=== PATIENT | female | born 1960 | race Caucasian/White ===

== ENCOUNTER 2024-04-17 14:48 | Emergency (ER) | payer MEDICARE, MEDICAID, SELFPAY ==
[2024-04-17] VITALS (84 sets, daily range): BP systolic 141–227; BP diastolic 69–110; PULSE 68–84; RESP 11–23; TEMP 36.3; O2SAT 93–100
--- NOTE | ~2024-04-17 | XR_ITS ---
EXAMINATION: XR chest 2V 04/17/2024 15:35 INDICATION: Hypertension. PROCEDURE: 2 view chest COMPARISON: No prior studies for comparison. FINDINGS: The lungs are clear. The cardiomediastinal silhouette is within normal limits. There are no pleural effusions. There is no pneumothorax suspected. IMPRESSION: 1: NO ACUTE CARDIOPULMONARY DISEASE. Reviewed, dictated and finalized at location B.
--- NOTE | 2024-04-17 14:56 | ECG_ITS ---
Test Date: 2024-04-17 14:52:30 Measurements Intervals [place] Rate: 74 P: 74 RI: 188 QRS: 24 QRSD: 75 T: 11 QT: 374 QTc: 415 Interpretive Statements SINUS RHYTHM BORDERLINE ST-T WAVE ABNORMALITY- ANTEROLAT/INF LEADS BORDERLINE ECG No previous ECG available for comparison Electronically Signed On 04-17-2024 15:03:23 CDT by William Hubbard D.O.
[2024-04-17 15:45] LABS: Basophils Absolute Auto 0.06 K/mm3 (0.00-0.10); Basophils Percent Auto 0.6 % (0.0-1.0); Eosinophils Absolute Auto 0.71 K/mm3 (0.02-0.50); Eosinophils Percent Auto 6.8 % (1.0-6.0); Hemoglobin 13.6 g/dL (11.7-13.8); Immature Granulocyte Absolute 0.04 K/mm3 (0.00-0.00); Immature Granulocyte Percent A 0.4 % (0.0-0.0); Lymphocytes Absolute Auto 2.54 K/mm3 (1.10-4.50); Lymphocytes Percent Auto 24.3 % (18.0-42.0); Mean Corpuscular HGB Conc 33.2 g/dL (32-36); Mean Corpuscular Hemoglobin 29.6 pg (27.0-31.0); Mean Corpuscular Volume 89.1 fL (78.0-102.0); Mean Platelet Volume 9.8 fl (9.2-11.8); Monocytes Absolute Auto 0.73 K/mm3 (0.10-0.90); Neutrophils Absolute Auto 6.37 K/mm3 (1.70-7.20); Neutrophils Percent Auto 60.9 % (50.0-70.0); Platelet Count Result 296 K/mm3 (150-420); Red Cell Distribution Width 13.2 % (11.6-14.4); White Blood Count 10.5 K/mm3 (4.8-10.8)
--- NOTE | 2024-04-17 15:47 | ED.ARRPALP ---
HPI - Arrhythmia/Palpitations General Chief Complaint: Arrhythmia/Palpitations Stated Complaint: irregular heart rhythm while in cardiac rehab Source: patient Mode of arrival: ambulatory Limitations: no limitations History of Present Illness HPI narrative: Patient is a 64-year-old female with coronary disease and a stent last month. She is at cardiac rehab and was having for counts of wide complex ectopic beats. She was asymptomatic. She is brought to the ER for this finding. No associated chest pain or shortness of breath or nausea vomiting or diarrhea. she was also noted to have elevated blood pressure. MD complaint: irregular heart beat Onset (ago): minute(s) (30) Duration: intermittent Severity: mild Context: occurred during exertion Arrhythmia history: other ( Stent placed last month) Associated symptoms: denies other symptoms Treatments prior to arrival: other ( elevated blood pressure which is under control for the most part but worse today) Related Data Home Medications Medication Instructions Recorded Confirmed aspirin 81 mg tablet 81 mg PO DAILY 04/17/24 04/17/24 atorvastatin 80 mg tablet 80 mg PO DAILY 04/17/24 04/17/24 losartan 25 mg tablet 25 mg PO DAILY 04/17/24 04/17/24 metoprolol succinate 25 mg 25 mg PO DAILY 04/17/24 04/17/24 tablet,extended release 24 hr ticagrelor 90 mg tablet (Brilinta) 90 mg PO BID 04/17/24 04/17/24 Allergies Allergy/AdvReac Type Severity Reaction Status Date / Time codeine AdvReac Unknown Verified 12/22/15 08:42 Penicillins AdvReac Unknown Verified 12/22/15 08:42 Review of Systems Review of Systems: All systems reviewed & are unremarkable except as noted in HPI and below Constitutional: Constitutional: Reports no additional constitutional complaints Eyes: Eyes: Reports no additional eye complaints ENT: Reports system reviewed and no additional complaints, except as documented Cardiovascular: Cardiovascular: Reports no additional cardiovascular complaints Respiratory: Respiratory: Reports no additional respiratory complaints Gastrointestinal: Gastrointestinal: Reports no additional gastrointestinal complaints Genitourinary: Genitourinary: Reports no additional female genitourinary complaints Musculoskeletal: Musculoskeletal: Reports no additional musculoskeletal complaints Integumentary/Breasts: Skin/Breast: Reports system reviewed and no additional complaints, except as docu Neurologic: Reports system reviewed and no additional complaints, except as documented Psychiatric: Psychiatric: Reports no additional psychiatric complaints Endocrine: Endocrine: Reports no additional endocrine complaints Hematologic/Lymphatic: Hematologic/Lymphatic: Reports no additional hematologic/lymphatic complaints Allergic/Immunologic: Allergic/Immunologic: Reports no additional allergic/immunologic complaints Exam Const: General: healthy appearing Nutritional Appearance: well nourished Orientation/consciousness: patient oriented x3 HENMT: Head: normal to inspection Ears: external ears normal Face/Nose/Sinus: Normal external nose present Eyes: Conjunctivae: conjunctivae normal Pupils: Equal, round and reactive pupils present EOM: EOMs intact bilaterally Neck: Neck: normal visual inspection Chest: Chest palpation & inspection: normal inspection of the chest Resp: Effort & Inspection: normal respiratory effort and not labored Auscultation: clear to auscultation bilaterally Cardio: Rate: regular rate Rhythm: regular rhythm Heart sounds: no murmurs GI: Inspection: non-distended GI Palp: Yes Soft to palpation, No Tenderness to palpation present (GI), No Guarding due to palpation present (GI) and No Rigid due to palpation Auscultation: normal bowel sounds : General: Yes bladder normal to palpation Back/Spine/Pelvis: Back: no CVA tenderness Skin: General skin exam: normal color Rashes: no rashes Wounds: no wounds Neuro: General: patient oriented x3 Crani
[2024-04-17 16:08] LABS: Alanine Aminotransferase 45 U/L (14-59); Albumin Level 3.6 g/dL (3.4-5.0); Alkaline Phosphatase 112 U/L (46-116); Anion Gap 8 mmol/L (4-12); Aspartate Amino Transferase 29 U/L (15-37); Bilirubin,Total 0.4 mg/dL (0.00-1.00); Blood Urea Nitrogen 15 mg/dL (7-18); Calcium 9.1 mg/dL (8.5-10.1); Carbon Dioxide 28 mmol/L (21-32); Chloride 103 mmol/L (98-108); Estimated Glomerular Filt Rate > 60; Glucose 89 mg/dL (70-99); NT Pro B Type Natriuretic Pept 1050 pg/mL (0-125); Osmolality Calculated 287 mOsm/kg (285-295); Sodium 139 mmol/L (136-145); Total Protein 7.7 g/dL (6.4-8.2); Troponin I 46.4 ng/L (0.00-60.4)
[2024-04-17 16:16] LABS: Appearance Urine Clear (Clear); Bilirubin Urine Negative (Negative); Blood Urine Negative (Negative); Color Urine Light Yellow (Yellow); Glucose Urine UA Negative (Negative); Ketones Urine Negative (Negative); Leukocyte Esterase Ur Negative LEU/UL (Negative); Nitrate Urine Negative (Negative); Protein Urine Negative (Negative); Urobilinogen Urine 0.2 mg/dL (0.2-1.0)
[2024-04-17 16:18] LABS: Add Urine Microscopic? NO
[2024-04-17 17:58] LABS: Troponin I 51.3 ng/L (0.00-60.4)
[2024-04-17] MEDS: LABETALOL HCL INJ 100 MG/20 ML VIAL 10 MG IV PUSH (19:12)
[2024-04-17] MEDS: TICAGRELOR 90 MG TABLET PO (19:21)
[2024-04-18] VITALS (11 sets, daily range): BP systolic 126–140; BP diastolic 68–83; PULSE 64–82; RESP 14–20; O2SAT 95–96
== END 2024-04-18 01:25 | disposition short-term general hospital (02) ==
PROVIDERS: Emergency Provider Emergency Medicine
DX: I49.3 Ventricular premature depolarization (principal); I10 Essential (primary) hypertension; I25.10 Atherosclerotic heart disease of native coronary artery without angina pectoris; Z79.82 Long term (current) use of aspirin; Z79.899 Other long term (current) drug therapy
CPT/HCPCS: 36415; 71046; 80053; 81003; 83735; 83880; 84484; 85025; 93005; 96374; 99285; A9270

== ENCOUNTER 2024-08-14 09:30 | Outpatient (RCR) | payer MEDICARE, MEDICAID, SELFPAY ==
--- NOTE | 2024-04-17 14:30 | PCCPR ---
Patient arrived today for admission to cardiac rehab. While patient at rest noted 5 beat run of VTACH. Patient did endorse feeling briefly dizzy and felt funny in her chest that quickly dissipated. B/P 188/90. Dr. Hubbard made aware, okay to continue with admission and 6MWT if blood pressure comes down. Blood pressure re-assessment prior to 6MWT 198/106. Call placed to patient data services developer Dr. Morgan. Instructions to escort patient to ER for further evaluation. Pt agreeable, patient contacted family. Transported via W/C to ER, report given to NETSUITE CONSULTANT and ER MD.
== END 2024-08-15 23:59 | disposition home or self-care (01) ==
PROVIDERS: Visit Provider Internal Medicine Cardiovascular Disease
DX: Z98.61 Coronary angioplasty status (principal)
CPT/HCPCS: 93798

== ENCOUNTER 2024-08-26 09:30 | Outpatient (RCR) | payer MEDICARE, MEDICAID, SELFPAY | END 2024-08-26 14:27 | disposition home or self-care (01) | PROVIDERS: Visit Provider Internal Medicine Cardiovascular Disease | DX: Z95.5 Presence of coronary angioplasty implant and graft (principal) | CPT/HCPCS: 93798 ==